=== PATIENT | male | born 1930 | race Caucasian/White ===

== ENCOUNTER 2018-04-22 11:52 | Emergency (ER) | payer MEDICARE ==
[~2018-04-22] VITALS: Ht 172.7 cm; Wt 72.6 kg
[~2018-04-22 11:52] MED LIST: 5-HTP100 MG ORAL; AMIODARONE HCL400 M1 ORAL; ASPIR-LOW81 MG ORAL; ASPIRIN EC325 MG ORAL; ATORVASTATIN CA40 MG ORAL; BUPROPION XL150 MG ORAL; BUPROPION XL300 M1 PO; CENTRUM SILVER1 EAC4 PO; CIPRO500 MG PO; CO Q-1010 MG PO; DONEPEZIL HCL10 MG ORAL; GINKGO BILOBA60 M1 PO; GINKGO BILOBA60 M2 PO; IRON325 M1 PO; KEFLEX500 MG ORAL; LISINOPRIL5 MG ORAL; MAGNESIUM250 M2 PO; METOPROLOL SUCC25 MG ORAL; METOPROLOL TART25 MG ORAL; NAMENDA XR28 MG PO; NITROSTAT0.4 M1 SL; PLAVIX75 MG ORAL; SUPER B COMPLE150 MG PO; TAMSULOSIN HCL0.4 MG ORAL
[2018-04-22 12:14] VITALS: BP 138/54
[2018-04-22] MEDS ORDERED: AMIODARONE HCL200 MG ORAL (12:39)
[2018-04-22] MEDS ORDERED: ELIQUIS2.5 MG PO (12:39)
[2018-04-22] MEDS ORDERED: PRAVASTATIN SOD10 M1 ORAL (12:39)
[2018-04-22 12:40] LABS: BASOPHILS % (AUTO) 1.3 % (0.0-2.0); EOSINOPHILS % (AUTO) 0.8 % (0.0-3.0); HEMATOCRIT 51.5 % (42.0-52.0); HEMOGLOBIN 17.2 G/DL (14.2-18.0); LYMPHOCYTES % (AUTO) 13.7 % (20.0-45.0); MEAN CORPUSCULAR VOLUME 94 FL (80-99); MONOCYTES % (AUTO) 3.5 % (1.0-10.0); NEUTROPHILS % (AUTO) 80.6 % (45.0-75.0); PLATELET COUNT 220 K/UL (150-450); RED BLOOD COUNT 5.48 M/UL (4.70-6.10); RED CELL DISTRIBUTION WIDTH 11.7 % (11.6-14.8); WHITE BLOOD COUNT 6.9 K/UL (4.8-10.8)
[2018-04-22 12:52] LABS: ANION GAP 6 mmol/L (5-15); BLOOD UREA NITROGEN 17 mg/dL (7-18); CALCIUM 9.2 MG/DL (8.5-10.1); CARBON DIOXIDE 28 MMOL/L (21-32); CHLORIDE 106 MMOL/L (98-107); CREATININE 1.1 MG/DL (0.55-1.30); POTASSIUM 4.6 MMOL/L (3.5-5.1); SODIUM 140 MMOL/L (136-145)
[2018-04-22 13:08] LABS: ALANINE AMINOTRANSFERASE 23 U/L (12-78); ALBUMIN 3.4 G/DL (3.4-5.0); ALBUMIN/GLOBULIN RATIO 1.1 (1.0-2.7); ALKALINE PHOSPHATASE 48 U/L (46-116); ASPARTATE AMINO TRANSFERASE 23 U/L (15-37); BILIRUBIN,TOTAL 0.5 MG/DL (0.2-1.0); CKMB 1.2 NG/ML (0.0-3.6); CREATINE KINASE 83 U/L (26-308)
[2018-04-22 13:43] VITALS: BP 129/52
--- NOTE | 2018-04-22 14:16 | Emergency Room Report ---
History of Present Illness General Chief Complaint: Chest Pain Source: Patient, Significant Other, Medical Record Present Illness HPI Patient presents with complaints of chest pain reports the patient had an episode last night where he had mid chest pain This morning he had another episode where he got the upper part of the chest and appeared to complain of pain Patient's primary physician was contacted and told to present to the emergency room currently the patient denies any chest pain denies any shortness of breath denies any back or flank pain denies any vomiting The also describes a belching episode earlier this morning which has resolved Allergies: Coded Allergies: No Known Allergies (Unverified , 04/07/13) Patient History Past Medical History: see triage record Pertinent Family History: none Reviewed Nursing Documentation: PMH: Agreed; PSxH: Agreed Nursing Documentation-PMH Past Medical History: No History, Except For Hx Cardiac Problems: Yes - ACS Hx Hypertension: Yes Hx Cancer: No Hx Gastrointestinal Problems: Yes 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 Hx Dementia: Yes Review of Systems All Other Systems: negative except mentioned in HPI Physical Exam Vital Signs Date Time Temp Pulse Resp B/P (MAP) Pulse Ox O2 Delivery O2 Flow Rate FiO2 04/22/18 12:04 96.9 72 13 80/ 100 Room Air 97.0 Sp02 EP Interpretation: reviewed, normal General Appearance: well appearing, no apparent distress Head: normocephalic, atraumatic Eyes: bilateral eye PERRL, bilateral eye EOMI ENT: hearing grossly normal, normal pharynx, TMs + canals normal, uvula midline Neck: full range of motion, supple, no meningismus, no bony tend Respiratory: lungs clear, normal breath sounds, no rhonchi, no respiratory distress, no retraction, no accessory muscle use Cardiovascular #1: normal peripheral pulses, regular rate, rhythm, no edema, no gallop, no JVD, no murmur Gastrointestinal: normal bowel sounds, non tender, soft, no mass, no organomegaly, non-distended, no guarding, no hernia, no pulsatile mass, no rebound Genitourinary: no CVA tenderness Musculoskeletal: normal inspection Neurologic: oriented x3, responsive, 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, motor strength/ tone normal, sensory intact Psychiatric: mood/affect normal Skin: normal color, no rash, warm/dry, palpation normal Lymphatic: normal inspection, no adenopathy Medical Decision Making Diagnostic Impression: Primary Impression: Chest pain ER Course Patient is a fairly complex patient with multiple differential to consideration including but not limited to cardiac cardiopulmonary and vascular emergencies Patient's blood work is normal EKG is also normal patient has rested comfortably throughout his stay Patient's primary physician was contacted at [phone] ([email or web address]) The case was discussed along with the laboratory findings patient's status currently And it was agreed to have the patient follow-up outpatient closely I spoke to the and they will return with any worsening symptoms otherwise follow up closely Labs Test 04/22/18 12:20 White Blood Count 6.9 K/UL (4.8-10.8) Red Blood Count 5.48 M/UL (4.70-6.10) Hemoglobin 17.2 G/DL (14.2-18.0) Hematocrit 51.5 % (42.0-52.0) Mean Corpuscular Volume 94 FL (80-99) Mean Corpuscular Hemoglobin 31.4 PG (27.0-31.0) Mean Corpuscular Hemoglobin Concent 33.4 G/DL (32.0-36.0) Red Cell Distribution Width 11.7 % (11.6-14.8) Platelet Count 220 K/UL (150-450) Mean Platelet Volume 6.7 FL (6.5-10.1) Neutrophils (%) (Auto) 80.6 % (45.0-75.0) Lymphocytes (%) (Auto) 13.7 % (20.0-45.0) Monocytes (%) (Auto) 3.5 % (1.0-10.0) Eosinophils (%) (Auto) 0.8 % (0.0-3.0) Basophils (%) (Auto) 1.3 % (0.0-2.0) Sodium Level 140 MMOL/L (136-145) Potassium Level 4.6 MMOL/L (3.5-5.1) Chloride Level 106 MMOL/L (98-107) Carbon Dioxide Level 28 MMOL/L (21-32) Anion Gap 6 mmol/L (5-15) Blood Urea Nitrogen 17 mg/dL (7-18) Creatinine 1.1 MG/DL (0.55-1.30) Estimat Glomerular Filtration Rate mL/min (>60) Glucose Level 138 MG/DL (74-106) Calcium Level 9.2 MG/DL (8.5-10.1) Total Bilirubin 0.5 MG/DL (0.2-1.0) Aspartate Amino Transf (AST/SGOT) 23 U/L (15-37) Alanine Aminotransferase (ALT/SGPT) 23 U/L (12-78) Alkaline Phosphatase 48 U/L (46-116) Total Creatine Kinase 83 U/L (26-308) Creatine Kinase MB 1.2 NG/ML (0.0-3.6) Creatine Kinase MB Relative Index 1.4 Troponin I 0.000 ng/mL (0.000-0.056) Pro-B-Type Natriuretic Peptide 273 pg/mL (0-125) Total Protein 6.4 G/DL (6.4-8.2) Albumin 3.4 G/DL (3.4-5.0) Globulin 3.0 g/dL Albumin/Globulin Ratio 1.1 (1.0-2.7) Lipase 223 U/L (73-393) EKG Diagnostic Results Rate: normal Rhythm: NSR ST Segments: no acute changes Rhythm Strip Diag. Results EP Interpretation: yes Rate: 66 Rhythm: NSR, no PVC's, no ectopy Chest X-Ray Diagnostic Results Chest X-Ray Diagnostic Results : Chest X-Ray Ordered: Yes # of Views/Limited/Complete: 1 View Indication: Chest Pain EP Interpretation: Yes Interpretation: no consolidation, no effusion, no pneumothorax, no acute cardiopulmonary disease Impression: No acute disease Electronically Signed by: Emily Price DO Last Vital Signs Date Time Temp Pulse Resp B/P (MAP) Pulse Ox O2 Delivery O2 Flow Rate FiO2 04/22/18 13:43 98.6 67 17 129/52 100 Room Air 98.6 Status: improved Disposition: HOME, SELF-CARE Condition: Improved Referrals: Wagner Lucero MD (PCP) Patient Instructions: Nonspecific Chest Pain Additional Instructions: Patient is provided with the discharge instructions notified to follow up with primary doctor in the next 2-3 days otherwise return to the er with any worsening symptoms. Please note that this report is being documented using DRAGON technology. This can lead to erroneous entry secondary to incorrect interpretation by the dictating instrument. Emily Price DO Apr 22, 2018 14:16
--- NOTE | 2018-04-23 11:07 | Diagnostic Imaging Report ---
Indication: Chest pain Technique: XRAY Chest 1v Comparison: 12/24/2015 Findings: Heart size and mediastinal contours are within normal limits and stable compared to the prior exam. Atherosclerotic calcifications again noted in the aortic arch. There is no focal consolidation, pneumothorax or pleural effusion. There is a suggesting edema versus vessel imaged on within the medial left lung base. This was seen previously. A 9 mm oval density projecting over an anterior rib is unchanged from the prior exam. Osseous structures demonstrate no acute abnormality. IMPRESSION: No radiographic evidence of acute cardiopulmonary disease or significant interval change compared to the prior exam.
--- NOTE | 2018-04-24 14:27 | Cardiology Report ---
APPROVED REPORT EKG Measurement Heart [id number] Normal sinus rhythm Normal ECG
== END 2018-04-22 13:43 | disposition home or self-care (01) ==
LOC: EMR 12:49 → CANBEDREQ 13:41 → EMR 13:43
DX: R07.9 Chest pain, unspecified (principal); I10 Essential (primary) hypertension; F03.90 Unspecified dementia, unspecified severity, without behavioral disturbance, psychotic disturbance, mood disturbance, and anxiety; Z86.79 Personal history of other diseases of the circulatory system
CPT/HCPCS: 36415; 71045; 80053; 82550; 82553; 83690; 83880; 84484; 85025; 93005; 99283